=== PATIENT | male | born 1960 | race Two or more races ===

== ENCOUNTER 2025-03-07 11:53 | Emergency (ER) | payer OTHER, SELFPAY ==
[2025-03-07 11:54] VITALS: BMI 29.5
[2025-03-07 12:16] VITALS: BP 87/51; PULSE 52; RESP 20; TEMP 36.4; O2SAT 96; BMI 29.5
--- NOTE | 2025-03-07 12:18 | XR_ITS ---
Examination: CT lumbar spine, without contrast. 2-D sagittal reconstructions. 2-D coronal reconstructions. 3-D reconstructions. Date and time of exam:February 05, 2025 1314 hours INDICATIONS: Patient fell off a ladder today with injury to lower back, lower back pain CTDI: vol (mGy):36.9 DLP: (mGycm):211 Technique: Multiple 1.25 mm axial sections of the lumbar spine without intravenous contrast have been obtained. 2-D sagittal and coronal reconstructions have been obtained. 3-D reconstructions have been obtained. Low dose protocols were performed. One or more of the following dose reduction techniques were used; automated exposure control, adjustment of the mA and/or KV according to patient size, use of iterative reconstruction technique. Findings: Acute fractures T12 vertebral body including a 15 mm displaced fracture fragment off the anterior margin of this vertebral body, sagittal image 26 Reduction in height of this vertebral body approximately 40% Retropulsion of the posterior superior margin of this vertebral body 3 mm No acute lumbar fracture IMPRESSION: Acute fractures T12 vertebral body as above
--- NOTE | 2025-03-07 12:19 | XR_ITS ---
Examination: CT cervical spine without contrast 2-D sagittal reconstructions 2-D coronal reconstructions 3-D reconstructions. Exam date and time:March 07, 2025 1308 hours INDICATIONS: Patient fell off a ladder today with injury to the neck, neck pain CTDI:vol (mGy) 9.95 DLP: (mGycm) 225 Technique: Multiple 2 mm axial sections of the cervical spine have been obtained. The coronal and sagittal reconstructions have been obtained. 3-D reconstructions have been obtained. Low dose protocols were performed. One or more of the following dose reduction techniques were used; automated exposure control, adjustment of the mA and/or KV according to patient size, use of iterative reconstruction technique. Findings: Axial sections demonstrate intact base of the skull. C1 exhibit satisfactory relationship to the odontoid. No acute cervical vertebral body fracture seen. Alignment posterior spinous processes satisfactory. Radiolucent areas in the left articulating facet C1, axial image 28 and the body of C2, coronal image 28 Impression: No acute cervical fracture. Small osteolytic lesions as above, recommend 3 month follow-up 5 view plain series cervical spine
--- NOTE | 2025-03-07 12:19 | XR_ITS ---
Examination: CT brain head without contrast. 2-D sagittal coronal reconstructions Date and time of exam:March 07, 2025 1308 hours INDICATIONS: Patient fell off a ladder today with injury to the head, head pain CTDI: vol (mGy):52.8 DLP: (mGycm):1092 Technique: Multiple CT axial sections of the brain have been obtained, 5 mm slice thickness. Contrast has not been administered. 2-D sagittal, coronal reconstructions have been obtained Low dose protocols were performed. One or more of the following dose reduction techniques were used; automated exposure control, adjustment of the mA and/or KV according to patient size, use of iterative reconstruction technique. Findings: No significant ventricular enlargement. Intra-axial or extra-axial hemorrhage density is not seen. No mass effect or midline shift Basal cisterns are not remarkable. Fourth ventricle is midline. Tiny radiolucencies in the right occipital bone, axial image 27 axial image 28. Impression: Negative for acute hemorrhage, mass effect or midline shift Tiny radiolucencies in the right occipital bone, recommend 4 view skull series follow-up in 3 months
--- NOTE | 2025-03-07 12:23 | XR_ITS ---
Examination: CT chest with intravenous contrast CT abdomen with intravenous contrast CT pelvis with intravenous contrast 2-D coronal and sagittal reconstructions Time of exam: March 07, 2025 1314 hours INDICATIONS: Patient fell off a ladder today with into the chest and abdomen, chest pain abdomen pain CTDI: vol (mGy) : 11.3 DLP: (mGycm): 831 Technique: Multiple axial images of the chest, abdomen and pelvis with intravenous contrast, 3.0 mm slice thickness. Images obtained post intravenous injection Isovue 370 60 cc. 2-D sagittal and coronal reconstructions. Low dose protocols were performed. One or more of the following dose reduction techniques were used; automated exposure control, adjustment of the mA and/or KV according to patient size, use of iterative reconstruction technique. Findings: Thoracic aorta pulmonary arteries intact No hemopericardium pneumothorax pulmonary contusion or hemothorax Manubrium body the sternum intact Ribs intact Acute fracture T12 vertebral body, please see the CT lumbar spine report No liver splenic or renal laceration Cholelithiasis Abdominal aorta intact No free blood in the abdomen 10 mm fat-containing a buckle hernia Negative for pneumoperitoneum Urinary bladder intact Hips intact Fat-containing inguinal hernias IMPRESSION: Thoracic aorta pulmonary arteries intact No hemopericardium, pneumothorax, pulmonary contusion or hemothorax Acute fractures T12 vertebral body, please see the CT scan lumbar spine report No abdominal parenchymal laceration Abdominal aorta intact No free blood in the abdomen or pelvis
--- NOTE | 2025-03-07 12:33 | EDNOTE_ITS ---
ED Fall Injury RME/HPI General Chief Complaint: Fall Stated Complaint: FELL OF 8FT-LADDER; HIT HEAD & BACK Time Seen by Provider: 03/07/25 11:58 Arrival date/time: 03/07/25 11:53 RME / HPI RME / HPI Narrative: 65-year-old male patient came in for evaluation regarding fall. Patient fell off a ladder, does not know what happened, about 8 feet high, landed on his buttocks, complaining of pain to the sacral area, bilateral calf muscle, and occipital pain. Patient denies any neck pain. Denies any chest pain denies any abdominal pain. Denies any hip pain. Patient is not taking any blood thinner. Patient was brought in by family, in the triage patient's blood pressure was noted to be 87/51 heart rate of 52. Incident happened about 1 hour prior to ER visit. Related Data Allergies Allergy/AdvReac Type Severity Reaction Status Date / Time No Known Allergies Allergy Verified 03/07/25 11:57 Review of Systems Review of Systems Narrative Review of Systems: Review of system reviewed and within normal limits except mentioned in HPI ED Exam Narrative Physical exam: VITAL SIGNS: Reviewed. GENERAL APPEARANCE: Alert and interactive, follows commands, no acute distress, HEAD AND FACE: Tenderness of the occipital scalp no bruising ENT: PERRL, pink conjunctivitis, eyelid no trauma, Mucous membrane moist. NECK: Supple, nontender, no nuchal rigidity. CHEST: No tenderness, no crepitus, no paradoxical movement, no retractions. LUNGS: Clear, well ventilated, symmetric, no rales, no wheezing, no ronchi, no stridor, good breath sounds bilaterally. HEART: Regular rate, regular rhythm, no murmur, no gallops. ABDOMEN: Soft, positive bowel sounds, nondistended, no guarding, nontender, no rebound, no masses, RECTAL: Deferred. GENITAL: Deferred. NEUROLOGICAL: Gross motor function intact sensory function intact, Appropriate for age. MUSCULOSKELETAL: Sacral tenderness no bruising , full range of motion. EXTREMITIES: Bilateral calf muscle, full range of motion. Distal neurovascular status intact bilateral lower extremity SKIN: Color pink, dry, no rash, no lacerations, no abrasions, no contusions. LYMPHATICS: Deferred. Course Quality Measures none Orders Category Date Time Status CT Screening NOW Care 03/07/25 12:23 Active Insert IV STAT Care 03/07/25 12:23 Active Insert IV STAT Care 03/07/25 12:23 Completed Referral - Coding Manager Stat Cons 03/07/25 14:[address] cervical spine wo con Stat Exams 03/07/25 12:[address] chest abdomen pelvis w Stat Exams 03/07/25 12:[address] head/brain wo con Stat Exams 03/07/25 12:[address] lumbar spine wo con Stat Exams 03/07/25 12:18 Completed XR tibia fibula LT 2V Stat Exams 03/07/25 12:36 Completed XR tibia fibula RT 2V Stat Exams 03/07/25 12:36 Completed CBC [CBC] Stat Lab 03/07/25 12:55 Completed CMP [Comprehensive Metabolic Panel] Stat Lab 03/07/25 12:55 Completed PTT [Partial Thromboplastin Time] Stat Lab 03/07/25 13:31 Completed UA, C/S IF [Urinalysis, C/S if Indicated] Stat Lab 03/07/25 14:20 Completed HYDROcodone/APAP 10/325 [[place] 10/325] Med 03/07/25 14:57 Discontinued 1 tab PO X1 ONE Morphine Inj Med 03/07/25 12:24 Discontinued 4 mg IVP X1 ONE Ondansetron Inj [Zofran Inj] Med 03/07/25 12:24 Discontinued 4 mg IVP X1 ONE Sodium Chloride 0.9% 1000 ml [Ns] 1,000 ml Med 03/07/25 12:24 Discontinued IV 999 mls/hr Sodium Chloride 0.9% 1000 ml [Ns] 1,000 ml Med 03/07/25 12:31 Discontinued IV 999 mls/hr Vital Signs Vital signs: Vital Signs Temperature 97.6 F 03/07/25 12:16 Pulse Rate 52 L 03/07/25 12:16 Respiratory Rate 20 03/07/25 12:16 Blood Pressure 87/51 L 03/07/25 12:16 Pulse Oximetry (%) 96 03/07/25 12:16 Oxygen Delivery Method Room Air 03/07/25 12:16 Fall MDM Narrative MDM Narrative:: 65-year-old male patient came in for evaluation [id number] male patient came in for evaluation regarding fall. Patient fell off a ladder, does not know what happened, about 8 feet high, landed on his buttocks, complaining of pa in to the sacral area, thoracolumbar area pain, bilateral calf muscle, and occipital pain. Patient denies any neck pain. Denies any chest pain denies any abdominal pain. Denies any hip pain. Patient is not taking any blood thinner. Patient was brought in by family, in the triage patient's blood pressure was noted to be 87/51 heart rate of 52. Incident happened about 1 hour prior to ER visit. CT scan of the head came back unremarkable CT scan of the neck came back unremarkable CT scan of the chest abdomen and pelvis came back unremarkable CT scan of the lumbar spine showed burst fracture T12 with 3 mm retropulsion and 40% decrease in vertebral height Laboratory workup all came back normal Patient received IV fluids, morphine, and Zofran Patient is to be referred to higher level care where there is any orthopedic spine surgeon or neurosurgeon Patient was accepted in [facility] Patient data External records reviewed:: None Clinical information provided by:: patient Social determinants that could affect healthcare access:: none Patient has the following chronic illnesses:: Diabetes mellitus How is presenting disease/condition affected by chronic disease/condition?: uneffected by Evaluation data The following diagnostics were reviewed and interpreted by me:: lab results and radiology exam(s) Lab and/or radiology exams considered but not ordered:: None Interpretation Summary: See results in [facility] Medications / Prescriptions Medications or Prescriptions considered but not ordered:: None Medication administrations:: Medication Administration History Discontinued Medications Hydrocodone Bitart/Acetaminophen (Hydrocodone/Apap 10/325 Tab) 1 tab PO X1 ONE Stop: 03/07/25 14:58 Last Admin: 03/07/25 15:02 Dose: 1 tab Documented By: FLORINDA Sodium Chloride (Ns) 1,000 mls @ 999 mls/hr IV .Q1H1M ONE Stop: 03/07/25 13:24 Last Infusion: 03/07/25 14:38 Dose: Infused Documented By: Admin: 03/07/25 12:47 Dose: 999 mls/hr Documented By: FLORINDA Sodium Chloride (Ns) 1,000 mls @ 999 mls/hr IV .Q1H1M ONE Stop: 03/07/25 13:31 Last Infusion: 03/07/25 14:38 Dose: Infused Documented By: Admin: 03/07/25 12:48 Dose: 999 mls/hr Documented By: FLORINDA Morphine Sulfate (Morphine Sulf Inj 10 Mg/Ml Vial) 4 mg IVP X1 ONE Stop: 03/07/25 12:25 Last Admin: 03/07/25 12:50 Dose: 4 mg Documented By: FLORINDA Ondansetron HCl (Ondansetron Inj 2 Mg/Ml Inj 2 Ml) 4 mg IVP X1 ONE; Protocol Stop: 03/07/25 12:25 Last Admin: 03/07/25 12:48 Dose: 4 mg Documented By: FLORINDA Morphine Zofran [place] IV fluids Consultations Consultation(s) initiated? (list below): No Diagnosis Fall Differential Diagnosis: other (T12 burst fracture, status post fall, sacral pain) Most likely diagnosis given after review of the tests above:: T12 burst fracture Admission Indicated Admission indicated?: indicated Admission Request Was there a request for admission?: No Disposition Plan Disposition Plan: Transfer Discharge Plan Plan Patient Disposition: [facility] Acute Care [facility] Facility Pt Being Transferred to: [facility] Problem List Clinical Impression: Burst fracture of T12 vertebra, Fall Patient/Caregiver Discharge Instructions Print Language: Monegasque Stand Alone Forms: [facility]aci Award Info., Patient Portal Info Letter
--- NOTE | 2025-03-07 12:36 | XR_ITS ---
Examination: Tibia-Fibula, right , 2 views Technique: Tibia-fibula AP lateral 2 views Date and time of exam: March 07, 2025 at 1251 hours INDICATIONS: Right lower leg pain one week. FINDINGS: No fracture or dislocation. No cortical bone destruction IMPRESSION: No fracture or dislocation
--- NOTE | 2025-03-07 12:36 | XR_ITS ---
Examination: Tibia-Fibula, left , 2 views Technique: Tibia-fibula AP lateral 2 views Date and time of exam: March 07, 2025 1251 hours INDICATIONS: Left leg pain beginning one week ago. FINDINGS: No fracture or dislocation No foreign body IMPRESSION: No fracture or dislocation
[2025-03-07] MEDS: SODIUM CHLORIDE 0.9% 1000 ML 1,000 ML 999 ML IV ×2 (12:47→12:48)
[2025-03-07] MEDS: ONDANSETRON INJ 2 MG/ML INJ 2 ML 4 MG IVP (12:48)
[2025-03-07] MEDS: MORPHINE SULF INJ 10 MG/ML VIAL 4 MG IVP (12:50)
--- NOTE | 2025-03-07 12:53 | PC.NURSE ---
PT PRESENTED TO ED ROOM 4, PT REPORTED NECK PAIN. RN PLACED A NECK COLLAR ON PT. PROVIDER YOSSI TOLD RN TO TAKE OFF NECK COLLAR.
[2025-03-07 13:19] LABS: Basophils # (Auto) 0.1 Thou/mm3 (0.0-0.2); Basophils % (Auto) 1 % (0-2.5); Eosinophils # (Auto) 0.1 Thou/mm3 (0.0-0.5); Eosinophils % (Auto) 1 % (0-10); Hematocrit 44.6 % (41.0-53.0); Hemoglobin 15.6 g/dL (13.5-16.0); Immature Granulocytes % (Auto) 1 % (0-0); Lymphocytes # (Auto) 3.7 Thou/mm3 (1.0-4.8); Lymphocytes % (Auto) 33 % (10-50); Mean Corpuscular Hemoglobin 29.7 pg (25.0-35.0); Mean Corpuscular Volume 85 fL (80-100); Monocytes # (Auto) 0.6 Thou/mm3 (0.0-0.8); Monocytes % (Auto) 5 % (0-12); Neutrophils # (Auto) 6.7 Thou/mm3 (1.8-7.7); Neutrophils % (Auto) 59 % (37-80); Nucleated Red Blood Cell % 0 /100 WBC (0); Platelet Count 200 Thou/mm3 (140-440); RDW Standard Deviation 38.5 fL (35.1-43.9); Red Blood Count 5.25 Miln/mm3 (4.50-5.90); White Blood Count 11.3 Thou/mm3 (3.8-10.6)
[2025-03-07 13:34] LABS: Alanine Aminotransferase 43 U/L (10-49); Albumin, Serum 4.8 gm/dL (3.4-4.8); Albumin/Globulin Ratio 1.6 (1.2-2.2); Alkaline Phosphatase 108 U/L (46-116); Anion Gap 13 (7-16); Aspartate Amino Transferase 35 U/L (0-34); BUN/Creatinine Ratio 12 Ratio (12-20); Bilirubin,Total 1.1 mg/dL (0.3-1.2); Blood Urea Nitrogen 16 mg/dL (9-23); Calcium 9.4 mg/dL (8.3-10.6); Calcium (Corrected) 9.4 mg/dL (8.5-10.1); Carbon Dioxide 26.8 mMol/L (20.0-31.0); Chloride 102 mMol/L (98-107); Creatinine (Component) 1.3 mg/dL (0.6-1.3); Estimated Creatinine Clearance 63.1 mL/min (>60); Glucose 299 mg/dL (74-106); Osmolality,Calculated 295 (275-295); Potassium 3.8 mMol/L (3.4-5.1); Sodium 142 mMol/L (136-145); Total Protein 7.8 gm/dL (5.7-8.2); eGFR > 60 See Note
--- NOTE | 2025-03-07 14:07 | PC.CC ---
Addendum entered by Gwyn Ewing RN 03/07/25 16:04: 1603 received call from [facility], spoke to Melanie and informed leaf size picker time is 1700. Addendum entered by Gwyn Ewing RN 03/07/25 16:02: 1600 called [facility] to inform leaf size picker time, left VM. Addendum entered by Gwyn Ewing RN 03/07/25 15:59: 1555 sent paperwork to [facility]. Called [facility], spoke to [facility] and set up the transport. The leaf size picker time is 1700. 1545 transfer packet is complete with CD inside including all signatures. Transfer packet given to ED charge nurse and number to call for report is on tracker. Addendum entered by Gwyn Ewing RN 03/07/25 15:00: 1449 received call from Philippe at [facility] that pt is accepted for ER to ER transfer. Accepted by Dr. Crews.Call report at [phone]. Addendum entered by Gwyn Ewing RN 03/07/25 14:35: 1430 Called [facility], spoke to Philippe and initiated the transfer. She stated she wants to speak to [place], call transferred. Addendum entered by Gwyn Ewing RN 03/07/25 14:30: 1429 called [facility] to initiated the transfer, left VM. Original Note: 1417 clinicals faxed to [facility] and [facility]. 1407 received orders from [facility], pt needs to be transferred for burst fracture T12 needs neurosurgery services.
[2025-03-07 14:15] VITALS: BP 156/63; PULSE 91; RESP 19; TEMP 36.6; O2SAT 96
[2025-03-07 14:39] LABS: Partial Thromboplastin Time 25.2 Seconds (22.0-36.0)
[2025-03-07 14:42] LABS: Collection Type, Urine Clean Catch; Squamous Epithelial Cell,Urine 0 /hpf (0-5)
[2025-03-07 14:55] LABS: Bilirubin,Urine Negative (Negative); Blood,Urine Negative (Negative); Clarity,Urine Clear (Clear/Hazy); Color,Urine Lt-Yellow (Lt Yel-Yel); Culture Indicated,Urine Not Indicated; Glucose, Urine 3+ (Negative); Ketones,Urine Trace (Negative); Leukocyte Esterase,Urine Negative (Negative); Nitrite,Urine Negative (Negative); PH,Urine 6.5 (5.0-7.0); Protein,Urine Trace (Neg - Trace); RBC,Urine 3 /hpf (0-3); Specific Gravity,Urine 1.026 (1.001-1.035); Urobilinogen,Urine Negative mg/dL (0.0-1.0); WBC,Urine 3 /hpf (0-5)
[2025-03-07] MEDS: HYDROcodone/APAP 10/325 TAB PO (15:02)
[2025-03-07 16:14] VITALS: BP 151/82; PULSE 91; RESP 16; TEMP 36.5; O2SAT 96
== END 2025-03-07 17:26 | disposition short-term general hospital (02) ==
PROVIDERS: Nurse Practitioner Family; Emergency Provider Family Medicine; PCP Physician Assistant
DX: S22.081A Stable burst fracture of T11-T12 vertebra, initial encounter for closed fracture (principal); S09.90XA Unspecified injury of head, initial encounter; S19.9XXA Unspecified injury of neck, initial encounter; S39.92XA Unspecified injury of lower back, initial encounter; M79.661 Pain in right lower leg; M79.605 Pain in left leg; R10.9 Unspecified abdominal pain; R07.9 Chest pain, unspecified; W11.XXXA Fall on and from ladder, initial encounter; Z75.1 Person awaiting admission to adequate facility elsewhere
CPT/HCPCS: 36415; 70450; 71260; 72125; 72131; 73590; 74177; 80053; 81001; 85025; 85730; 96360; 96361; 96374; 96375; 99285; A4649; J2270; J2405; J7030; Q9967; A9270